=== PATIENT | female | born 1965 | race Caucasian/White ===

== ENCOUNTER 2022-09-26 17:44 | Inpatient (IN) ==
[2022-09-26 19:37] LABS: ABS Basophils 0.1 10^3/ul (0-0.2); ABS Eosinophils 0.5 10^3/ul (0-0.6); ABS Monocytes 0.7 10^3/ul (0-0.8); ABS Neutrophils 6.3 10^3/ul (1.5-7.7); Eosinophil % 4.4 %; Hematocrit 44 % (35-47); Hemoglobin 14.6 g/dL (12.0-16.0); Lymphocyte % 28.5 %; Mean Corpuscular HGB Conc 33 g/dL (31-36); Mean Corpuscular Hemoglobin 30 pg (27-31); Mean Corpuscular Volume 89 fL (80-97); Mean Platelet Volume 9.9 fL (7.4-10.4); Nucleated Red Blood Cells % 0.1; Platelet Count 267 10^3/uL (150-450); Red Blood Count 4.97 10^6 /uL (3.70-4.87); Red Cell Distribution Width 14 % (10-15); White Blood Count 10.5 10^3/uL (3.5-10.8)
[2022-09-26 20:13] LABS: ALT 34 U/L (7-52); AST 22 U/L (13-39); Acetaminophen < 15 mcg/mL; Albumin 4.1 g/dL (3.2-5.2); Albumin/Globulin Ratio 1.5 (1-3); Alcohol, S < 13 mg/dL (<13); Alkaline Phosphatase 75 U/L (35-149); Anion Gap 5 mmol/L (2-11); Blood Urea Nitrogen 17 mg/dL (6-24); CO2 Carbon Dioxide 28 mmol/L (22-32); Calcium 9.6 mg/dL (8.6-10.3); Chloride 106 mmol/L (101-111); Globulin 2.8 g/dL (2-4); Glucose 138 mg/dL (70-100); Potassium 3.9 mmol/L (3.5-5.0); Salicylate < 2.50 mg/dL (<30); Sodium 139 mmol/L (135-145); Total Protein 6.9 g/dL (6.4-8.9); eGFR CKD-EPI 72.1 (>60)
[2022-09-26 20:27] LABS: TSH Ultra Thyroid Stim Horm 1.87 mcIU/mL (0.34-5.60)
[2022-09-26 22:34] LABS: Urine Appearance Cloudy; Urine Bilirubin Negative (Negative); Urine Blood Negative (Negative); Urine Color Yellow; Urine Glucose Negative (Negative); Urine Ketones Negative (Negative); Urine Nitrite Negative (Negative); Urine Protein Negative (Negative); Urine Specific Gravity 1.025 (1.002-1.030); Urine Urobilinogen Negative (Negative)
[2022-09-26 22:53] LABS: Urine Benzodiazepine Screen None Detected (None Detect); Urine Cannabinoids Screen Presumptive Positive (None Detect); Urine Opiates Screen None Detected (None Detect)
[2022-09-26 23:53] LABS: Urine Benzodiazepine Screen None Detected (None Detect); Urine Buprenorphine Screen None Detected (None Detect); Urine Cannabinoids Screen Presumptive Positive (None Detect); Urine Fentanyl Screen None Detected (None Detect); Urine Hydrocodone Screen None Detected (None Detect); Urine Opiates Screen None Detected (None Detect)
[2022-09-26] MEDS ORDERED: DULoxetine DR 60 mg CAP PO ONE (23:56)
[2022-09-27] MEDS ORDERED: Al Hydrox/Mg Hydrox/Simet LIQ 30 ML UDC PO PRN (10:11)
[2022-09-27] MEDS: DULoxetine DR 60 mg CAP PO SCH (22:01)
[2022-09-28] MEDS: DULoxetine DR 60 mg CAP PO SCH (08:20)
[2022-09-28 09:14] LABS: HDL Cholesterol 45.5 mg/dL
[2022-09-28] MEDS ORDERED: buPROPion SR 100 mg TAB.SR PO SCH (11:00)
[2022-09-28] MEDS: DULoxetine DR 30 mg CAP PO SCH (19:53)
[2022-09-29] MEDS: DULoxetine DR 30 mg CAP PO SCH ×2 (07:52→21:15)
[2022-09-30] MEDS: DULoxetine DR 30 mg CAP PO SCH (09:38)
[2022-09-30] MEDS: DOXEPIN 3 MG PO SCH (20:15)
[2022-10-01] MEDS: DULoxetine DR 30 mg CAP PO SCH (09:02)
[2022-10-01] MEDS: DOXEPIN 3 MG PO SCH (20:20)
[2022-10-02] MEDS: DULoxetine DR 30 mg CAP PO SCH (08:30)
[2022-10-02] MEDS: DOXEPIN 3 MG PO SCH (19:56)
[2022-10-03 10:47] VITALS: BP 148/80
== END 2022-10-03 11:27 | disposition home or self-care (01) | DRG 885 ==
LOC: ED 17:44 → EDHOLD 09-27 10:11 → BSU 09-27 11:40
PROVIDERS: ADMIT Psychiatry & Neurology Psychiatry; ATTEND Psychiatry & Neurology Psychiatry

== ENCOUNTER 2024-03-29 23:27 | Observation (INO) ==
[2024-03-30 00:13] LABS: ABS Basophils 0.1 10^3/uL (0.0-0.1); ABS Eosinophils 0.4 10^3/uL (0.0-0.5); ABS Monocytes 0.9 10^3/uL (0.0-0.9); ABS Neutrophils 5.6 10^3/uL (1.5-7.6); ABS Nucleated RBC 0.01 10^3/ul; Eosinophil % 4.3 %; Hematocrit 42.2 % (35-45); Hemoglobin 14.3 g/dL (11.5-14.3); Lymphocyte % 29.8 %; Mean Corpuscular Hemoglobin 30.3 pg (27-33); Mean Corpuscular Hgb Conc 33.8 g/dL (31-36); Mean Corpuscular Volume 89.7 fL (80-97); Mean Platelet Volume 10.4 fL (7.5-11.2); Nucleated Red Blood Cells % 0.1 %/100WBC (0.0-0.8); Platelet Count 229 10^3/uL (150-450); Red Cell Distribution Width 13.9 % (12-17)
[2024-03-30 01:02] LABS: Albumin 3.7 g/dL (3.2-5.2); Albumin/Globulin Ratio 1.2 (1-3); Calcium 8.9 mg/dL (8.6-10.3); Creatinine, Serum 1.44 mg/dL (0.51-0.95); Globulin 3.1 g/dL (2-4); Potassium 4.4 mmol/L (3.5-5.0); Total Bilirubin 0.2 mg/dL (0.2-1.0); Total Protein 6.8 g/dL (6.4-8.9); eGFR CKD-EPI 42.4 (>60)
[2024-03-30 01:57] LABS: High Sensitivity Troponin 1 Hr 20 pg/mL (<15)
[2024-03-30 04:29] LABS: Urine Appearance Clear; Urine Bilirubin Negative (Negative); Urine Blood Negative (Negative); Urine Color Yellow; Urine Glucose Negative (Negative); Urine Ketones Negative (Negative); Urine Nitrite Negative (Negative); Urine Protein Trace (Negative); Urine Specific Gravity 1.031 (1.002-1.030); Urine Urobilinogen Negative (Negative); Urine pH 5.5 (5.0-8.0)
[2024-03-30 05:13] LABS: Urine Bacteria Absent /HPF (Absent); Urine Red Blood Cell Absent /HPF (0-Trace); Urine Squamous Epithelial Cell Present /HPF (Absent); Urine White Blood Cell 1+(6-10/hpf) /HPF (0-Trace)
[2024-03-30] MEDS: Lactated Ringers 1000 ml BAG 1,000 ML IV ONE (05:17)
[2024-03-30 05:56] LABS: Calcium 8.5 mg/dL (8.6-10.3); Creatinine, Serum 1.06 mg/dL (0.51-0.95); Potassium 4.1 mmol/L (3.5-5.0); eGFR CKD-EPI 61.3 (>60)
[2024-03-30 06:58] LABS: High Sensitivity Troponin 1 Hr 15 pg/mL (<15)
[2024-03-30] MEDS: CMC:Pravastatin 20 mg TAB (NF) PO SCH (16:20)
[2024-03-30] MEDS: DOXEPIN 3 MG PO SCH (21:21)
[2024-03-31 06:02] LABS: ABS Basophils 0.1 10^3/uL (0.0-0.1); ABS Eosinophils 0.5 10^3/uL (0.0-0.5); ABS Lymphocytes 2.8 10^3/uL (1.0-4.8); ABS Monocytes 0.6 10^3/uL (0.0-0.9); ABS Nucleated RBC 0.01 10^3/ul; Eosinophil % 5.6 %; Hematocrit 42.1 % (35-45); Hemoglobin 14.3 g/dL (11.5-14.3); Lymphocyte % 31.3 %; Mean Corpuscular Hemoglobin 30.7 pg (27-33); Mean Corpuscular Volume 90.2 fL (80-97); Mean Platelet Volume 10.8 fL (7.5-11.2); Nucleated Red Blood Cells % 0.2 %/100WBC (0.0-0.8); Platelet Count 203 10^3/uL (150-450); Red Blood Count 4.67 10^6/uL (3.63-4.92); Red Cell Distribution Width 13.7 % (12-17); White Blood Count 9.1 10^3/uL (3.8-11.8)
[2024-03-31 06:33] LABS: Calcium 8.6 mg/dL (8.6-10.3); Creatinine, Serum 0.88 mg/dL (0.51-0.95); Magnesium 1.7 mg/dL (1.9-2.7); Potassium 4.1 mmol/L (3.5-5.0); eGFR CKD-EPI 76.6 (>60)
[2024-03-31] MEDS: Magnesium Sulfate 2 gm BAG 2 GM/50 ML BAG IVPB ONE (08:51)
[2024-03-31] MEDS: Magnesium Sulfate IV 1GM/100ML 1 GM/100 ML BAG IV ONE (10:34)
[2024-03-31] MEDS: cefTRIAXone 1 gm/50 mL D5W 1 GM/50 ML BAG IV SCH (12:27)
[2024-03-31 13:23] LABS: C Reactive Protein 8.73 mg/L (<8.01)
[2024-03-31] MEDS: Calcium Carb (TUMS) 500 mg CHEW TAB PO SCH (16:34)
[2024-04-01 06:29] LABS: Calcium 8.5 mg/dL (8.6-10.3); Creatinine, Serum 0.95 mg/dL (0.51-0.95); Potassium 4.5 mmol/L (3.5-5.0); eGFR CKD-EPI 69.9 (>60)
[2024-04-01] MEDS ORDERED: Regadenoson 0.4 MG/5 ML SYRINGE ONE (08:30)
[2024-04-01 10:01] VITALS: BP 142/86
[2024-04-01] MEDS: Enoxaparin 100 MG/ML SYR SUBCUT SCH (10:03)
[2024-04-01] MEDS ORDERED: DOXEPIN 3 MG PO SCH (21:00)
== END 2024-04-01 13:41 | disposition home or self-care (01) ==
LOC: EDHOLD 23:27 → ED 23:27 → MEDTELE 03-30 03:05
PROVIDERS: ADMIT Hospitalist; ATTEND Hospitalist